=== PATIENT | male | born 1950 ===

== ENCOUNTER 2021-04-22 10:53 | Emergency (ER) | payer MEDICARE ==
[2021-04-22 10:58] VITALS: BP 121/71
[2021-04-22 12:12] LABS: Basophils % (Auto) 0.8 % (0.0-1.8); Eosinophils # (Auto) 0.2 K/mm3 (0.0-0.4); Eosinophils % (Auto) 3.4 % (0.0-4.3); Hematocrit 33.8 % (35.5-45.6); Hemoglobin 10.9 gm/dl (11.8-15.2); Lymphocytes # (Auto) 1.7 K/mm3 (1.2-5.4); Lymphocytes % (Auto) 33.6 % (13.4-35.0); Mean Corpuscular HGB Conc 32 % (32-34); Mean Corpuscular Volume 98 fl (84-94); Monocytes # (Auto) 0.4 K/mm3 (0.0-0.8); Monocytes % (Auto) 8.4 % (0.0-7.3); Platelet Count 278 K/mm3 (140-440); Red Blood Count 3.46 M/mm3 (3.65-5.03); Red Cell Distribution Width 14.8 % (13.2-15.2)
--- NOTE | 2021-04-22 12:35 | Emergency Department Report ---
ED General Adult HPI - General Chief complaint: Urogenital-Male Stated complaint: CATH CAME OUT Time Seen by Provider: 04/22/21 10:59 Source: patient, family, [employer] agent [employer] Mode of arrival: Ambulatory Limitations: Language Barrier - History of Present Illness Initial comments: Dominican interpretation by secretary Mishel Patient's friend provides most of the history with patient's permission Patient has a history of dementia History is limited Patient's friend states that the patient lives with her and does not have any family locally Patient's friend states that the patient began complaining of lower abdominal discomfort and dysuria. the patient reports that sometimes he is able to urinate but sometimes he is not able to. Patient previously had a catheter in place which he reportedly removed himself. Patient's friend denies any fever, nausea, vomiting, diarrhea. - Related Data Previous Rx's Medication Instructions Recorded Last Taken Type Fluconazole [Diflucan TAB] 150 mg PO ONCE 1 Days #3 tablet 04/22/21 Unknown Rx cephALEXin [Keflex] 500 mg PO BID 10 Days #20 cap 04/22/21 Unknown Rx Allergies Allergy/AdvReac Type Severity Reaction Status Date / Time No Known Allergies Allergy Unverified 04/22/21 12:06 ED Review of Systems ROS: Stated complaint: CATH CAME OUT Other details as noted in HPI Comment: All other systems reviewed and negative ED Past Medical Hx - Medications Home Medications: Home Medications Medication Instructions Recorded Confirmed Last Taken Type Fluconazole [Diflucan TAB] 150 mg PO ONCE 1 Days #3 tablet 04/22/21 Unknown Rx cephALEXin [Keflex] 500 mg PO BID 10 Days #20 cap 04/22/21 Unknown Rx ED Physical Exam - General Limitations: Language Barrier General appearance: alert, in no apparent distress - Head Head exam: Present: atraumatic, normocephalic - Eye Eye exam: Present: normal appearance - ENT ENT exam: Present: mucous membranes moist - Respiratory Respiratory exam: Present: normal lung sounds bilaterally. Absent: respiratory distress, wheezes, rales, rhonchi, stridor, chest wall tenderness, accessory muscle use, decreased breath sounds, prolonged expiratory - Cardiovascular Cardiovascular Exam: Present: regular rate, normal rhythm, normal heart sounds. Absent: systolic murmur, diastolic murmur, rubs, gallop - GI/Abdominal GI/Abdominal exam: Present: soft, normal bowel sounds. Absent: distended, tenderness, guarding, rebound, rigid - exam: Present: other (strand forming machine operator: mishel, physician office secretary who provides language interpretation, no scrotal edema, no ttp of the tesicles, normal testicular lie, normal cremasteric reflex, mild edema of the distal penis) - Neurological Exam Neurological exam: Present: alert, oriented X3 - Psychiatric Psychiatric exam: Present: normal affect, normal mood - Skin Skin exam: Present: warm, dry, intact ED Course Vital Signs 04/22/21 10:56 Temperature 97.6 F Pulse Rate 64 Respiratory 15 Rate Blood Pressure 121/71 O2 Sat by Pulse 100 Oximetry ED Medical Decision Making - Lab Data Result diagrams: 04/22/21 11:16 04/22/21 11:16 Lab Results 04/22/21 04/22/21 04/22/21 Range/Units 11:16 11:16 14:00 WBC 5.0 (4.5-11.0) K/mm3 RBC 3.46 L (3.65-5.03) M/mm3 Hgb 10.9 L (11.8-15.2) gm/dl Hct 33.8 L (35.5-45.6) % MCV 98 H (84-94) fl MCH 32 (28-32) pg MCHC 32 (32-34) % RDW 14.8 (13.2-15.2) % Plt Count 278 (140-440) K/mm3 Lymph % (Auto) 33.6 (13.4-35.0) % [place] % (Auto) 8.4 H (0.0-7.3) % Eos % (Auto) 3.4 (0.0-4.3) % Baso % (Auto) 0.8 (0.0-1.8) % Lymph # (Auto) 1.7 (1.2-5.4) K/mm3 [place] # (Auto) 0.4 (0.0-0.8) K/mm3 Eos # (Auto) 0.2 (0.0-0.4) K/mm3 Baso # (Auto) 0.0 (0.0-0.1) K/mm3 Seg Neutrophils % 53.8 (40.0-70.0) % Seg Neutrophils # 2.7 (1.8-7.7) K/mm3 Sodium 139 (137-145) mmol/L Potassium 4.1 (3.6-5.0) mmol/L Chloride 103.3 (98-107) mmol/L Carbon Dioxide 26 (22-30) mmol/L Anion Gap 14 mmol/L BUN 15 (9-20) mg/dL Creatinine 0.7 L (0.8-1.3) mg/dL Estimated GFR > 60 ml/min BUN/Creatinine Ratio 21 % Glucose 101 H (75-100) mg/dL Calcium 8.9 (8.4-10.2) mg/dL Total Bilirubin < 0.20 (0.1-1.2) mg/dL AST 17 (5-40) units/L ALT 10 (7-56) units/L Alkaline Phosphatase 55 (35-129) units/L Total Protein 7.2 (6.3-8.2) g/dL Albumin 3.7 L (3.9-5) g/dL Albumin/Globulin Ratio 1.1 % Urine Color Yellow (Yellow) Urine Turbidity Cloudy (Clear) Urine pH 8.0 H (5.0-7.0) Ur Specific [place] 1.013 (1.003-1.030) Urine Protein 30 mg/dl (Negative) mg/dL Urine Glucose (UA) Neg (Negative) mg/dL Urine Ketones Neg (Negative) mg/dL Urine Blood Neg (Negative) Urine Nitrite Pos (Negative) Urine Bilirubin Neg (Negative) Urine Urobilinogen < 2.0 (<2.0) mg/dL Ur Leukocyte Esterase Lg (Negative) Urine WBC (Auto) > 182.0 H (0.0-6.0) /HPF Urine RBC (Auto) 20.0 (0.0-6.0) /HPF Urine Bacteria (Auto) 2+ (Negative) /HPF Urine Yeast (Budding) 3+ /HPF - Medical Decision Making Dominican interpretation by Mishel physician office secretary Patient's friend provides most of the history with patient's permission Patient has a history of dementia History is limited Patient's friend states that the patient lives with her and does not have any family locally. Patient's friend states that the patient began complaining of lower abdominal discomfort and dysuria. the patient reports that sometimes he is able to urinate but sometimes he is not able to. Patient previously had a catheter in place which he reportedly removed himself. Patient's friend denies any fever, nausea, vomiting, diarrhea. Vitals are normal. No abdominal tenderness on exam. Labs are stable. Patient was able to urinate and has no signs of abdominal distention on exam. UA shows evidence of significant UTI and yeast present. Patient declined IM ceftriaxone. Given prescription for medications. Discussed with patient and caregiver the importance of outpatient primary care and urology follow-up. Case management also evaluated patient and discussed with patient and caregiver. Advised patient and caregiver Please give medication as prescribed. Follow-up with your primary care doctor. Follow-up with urologist. Return to emergency room for any new or worsening symptoms. Critical care attestation.: If time is entered above; I have spent that time in minutes in the direct care of this critically ill patient, excluding procedure time. ED Disposition Clinical Impression: Yeast UTI UTI (urinary tract infection) Qualifiers: Urinary tract infection type: site unspecified Hematuria presence: with hematuria Qualified Code(s): N39.0 - Urinary tract infection, site not specified Disposition: HOME / SELF CARE / HOMELESS Is pt being admited?: No Does the pt Need Aspirin: No Condition: Stable Instructions: Urinary Tract Infection, Adult Additional Instructions: Please give medication as prescribed. Follow-up with your primary care doctor. Follow-up with urologist. Return to emergency room for any new or worsening symptoms. Administre la medicacin segn lo prescrito. Elmer un seguimiento con durham mdico de atencin primaria. Seguimiento con urlogo. Regrese a la dominguez de emergencias por cualquier sntoma nuevo o que empeore. Prescriptions: Fluconazole [Diflucan TAB] 150 mg PO ONCE 1 Days #3 tablet cephALEXin [Keflex] 500 mg PO BID 10 Days #20 cap Referrals: YONI WALTERS MD [Staff Physician] - 3-5 Days TRAY HESTER MD [Staff Physician] - 3-5 Days GENI VALDES MD [Staff Physician] - 3-5 Days Time of Disposition: 16:20 Print Language: BERMUDIAN
[2021-04-22 12:51] LABS: Alanine Aminotransferase 10 units/L (7-56); Albumin 3.7 g/dL (3.9-5); Blood Urea Nitrogen 15 mg/dL (9-20); Calcium 8.9 mg/dL (8.4-10.2); Hemolysis Index 5
[2021-04-22 13:18] LABS: BUN/Creatinine Ratio 21
[2021-04-22 14:13] LABS: Bacteria,Urine 2+ /HPF (Negative); Bilirubin,Urine NEG (Negative); Blood,Urine NEG (Negative); Color,Urine Yellow (Yellow); Urobilinogen,Urine < 2.0 mg/dL (<2.0)
[2021-04-22 14:18] LABS: WBC,Urine > 182.0 /HPF (0.0-6.0)
[2021-04-22] MEDS ORDERED: LIDOCAINE-MPF (1%) 10 MG/1 ML VIAL 5 ML INFILTRATI ONE (14:38)
[2021-04-22] MEDS ORDERED: ZIPRASIDONE MESYLATE 20 MG VIAL IM ONE (15:35)
[2021-04-22] MEDS ORDERED: ALPRAZolam 0.5 MG TAB PO ONE (15:50)
== END 2021-04-22 16:43 | disposition home or self-care (01) ==
LOC: ED 10:53
DX: B37.41 Candidal cystitis and urethritis (principal)
CPT/HCPCS: 36415; 80053; 81001; 85025; 99283